=== PATIENT | female | born 1960 | race Caucasian/White ===

== ENCOUNTER 2018-12-19 09:19 | Outpatient (CLI) | payer OTHER ==
--- NOTE | 2018-12-19 11:01 | MRI ---
MRI OF RIGHT SHOULDER: DATE: 12/19/2018. Provided CLINICAL HISTORY: Right shoulder pain. FINDINGS: There is full-thickness, near full width mildly retracted tearing of the supraspinatus tendon. The c omponents of the rotator cuff appear otherwise intact. The long head biceps tendon appears intact an d normally located. The glenoid labrum and glenohumeral articular cartilage are suboptimally evaluated in the absence of joint distention. There is abnormal signal present in the region of the superior labrum suspicious f or SLAP tear. The amount of fluid within the glenohumeral joint is physiologic. There is grade I ph ysiologic subacromial subdeltoid bursal fluid. Acromioclavicular joint osteoarthrosis is demonstrated with prominent subcortical cyst formation pres ent within the distal clavicle. There is pericapsular fluid signal intensity that may reflect superi mposed low-grade AC joint injury. The coracoclavicular ligaments appear intact. Regional marrow and muscular signal appear otherwise normal. Rotator cuff muscular volume appears pr eserved. IMPRESSION: 1. Full thickness, near full width minimally retracted tearing of the supraspinatus tendon of the fo otplate. 2. Acromioclavicular joint osteoarthrosis. 3. Findings suspicious for superior labrum anterior to posterior tear. POS: [facility]
== END 2018-12-19 09:20 | disposition home or self-care (01) ==
LOC: SCSMRI 09:19
PROVIDERS: ATTEND Family Medicine
DX: S49.91XD Unspecified injury of right shoulder and upper arm, subsequent encounter (principal); M75.101 Unspecified rotator cuff tear or rupture of right shoulder, not specified as traumatic; M19.011 Primary osteoarthritis, right shoulder

== ENCOUNTER 2019-07-10 14:15 | Outpatient (CLI) | payer OTHER ==
[2019-07-10 15:43] LABS: #Eosinphils 0.3 thou/uL (0.0-0.7); #Lymphocytes 2.6 thou/uL (1.20-3.40); #Monocytes 0.8 thou/uL (0.11-0.59); #Neutrophils 4.8 thou/uL (1.40-6.50); %Basophils 0.5 % (0.0-1.0); %Eosinophils 3.5 % (0.0-10.0); %Lymphocytes 30.7 % (21.0-51.0); %Monocytes 9.2 % (0.0-10.0); %Neutrophils 56.1 % (42.0-75.0); Hemoglobin 14.2 g/dL (12.0-16.0); Mean Corpuscular HGB CONC 33.5 g/dL (32.0-36.0); Mean Corpuscular Volume 95.6 fL (78.0-98.0); Mean Platelet Volume 8.4 fL (7.4-10.4); Platelet Count 292 thou/uL (130-400); RBC Distribution Width 12.3 % (11.5-14.5); Red Blood Cell (RBC) Count 4.44 mill/uL (4.20-5.40); White Blood Cell (WBC) Count 8.5 thou/uL (4.8-10.8)
[2019-07-10 15:49] LABS: INR-International Normal Ratio 0.9; PTT 28.1 SEC (22.9-36.1); Prothrombin Time 12.3 SEC (12.0-14.7)
[2019-07-10 16:01] LABS: Anion Gap 13 mmol/L (10-20); BUN (Urea Nitrogen) 13 mg/dL (9.8-20.1); Calc. Creatinine Clearance 0 mL/min (70-130); Calcium 9.2 mg/dL (7.8-10.44); Carbon Dioxide 24 mmol/L (22-29); Chloride 106 mmol/L (98-107); Estimated GFR-MDRD 72; Glucose 131 mg/dL (70-105); Potassium 4.1 mmol/L (3.5-5.1); Sodium 139 mmol/L (136-145)
== END 2019-07-10 14:16 | disposition home or self-care (01) ==
LOC: LABBT 14:15
PROVIDERS: ATTEND Orthopaedic Surgery
DX: Z01.812 Encounter for preprocedural laboratory examination (principal); M75.101 Unspecified rotator cuff tear or rupture of right shoulder, not specified as traumatic
CPT/HCPCS: 80048; 85025; 85610; 85730

== ENCOUNTER 2019-07-12 09:47 | Day surgery (SDC) | payer OTHER ==
[2019-07-10 14:16] VITALS: BMI 31.9
[2019-07-12] MEDS ORDERED: ePHEDrine/0.9% NaCl/PF SYRINGE 50 mg/10 ml ONE (09:48)
[2019-07-12] MEDS ORDERED: Glycopyrrolate 0.2 MG/ML 5 ML SYRINGE ONE (09:48)
[2019-07-12] MEDS ORDERED: Lidocaine 1% PF 5 ML VIAL ONE (09:48)
[2019-07-12] MEDS ORDERED: PHENYLEPHRINE-NS 100 MCG/ML 10 ML SYRINGE ONE (09:48)
[2019-07-12] MEDS ORDERED: PROPOFOL 200 MG/20 ML VIAL ONE (09:48)
[2019-07-12] MEDS ORDERED: Ropivacaine 0.5% HCl/PF (150 MG/30 ML VIAL) ONE (09:48)
[2019-07-12] MEDS ORDERED: Ropivacaine 0.2% HCl/PF (40 MG/20 ML VIAL) ONE (09:48)
[2019-07-12] MEDS ORDERED: Rocuronium Bromide 10 MG/ML (10ML VIAL) ONE (09:48)
[2019-07-12] MEDS ORDERED: Midazolam HCl 2 mg/2 ml Vial ONE (10:43)
[2019-07-12] MEDS ORDERED: Fentanyl 100 MCG/2 ML VIAL ONE (10:43)
[2019-07-12 11:32] LABS: PTT 27.9 SEC (22.9-36.1); Prothrombin Time 12.7 SEC (12.0-14.7)
[2019-07-12] MEDS ORDERED: Ondansetron PF 4 MG/2 ML Vial IVP PRN (11:48)
[2019-07-12] MEDS ORDERED: Promethazine HCl 25 MG/ML VIAL IM PRN (11:48)
[2019-07-12] MEDS ORDERED: traMADol HCl 50 MG TAB PO PRN ×2 (11:48)
[2019-07-12] MEDS ORDERED: Ropivacaine 0.2% 550 ML 550 ML NERVE BLCK SCH (11:48)
[2019-07-12] MEDS ORDERED: Ketorolac Tromethamine 30 MG/ML VIAL IVP PRN (11:48)
[2019-07-12] MEDS ORDERED: HYDROcodone/Acetaminophen 10/325 mg Tablet PO PRN ×2 (11:48)
[2019-07-12] MEDS ORDERED: Zolpidem Tartrate 5 MG TAB PO PRN (11:48)
[2019-07-12] MEDS ORDERED: Fentanyl 100 MCG/2 ML VIAL SLOW IVP PRN (11:49)
[2019-07-12] MEDS ORDERED: Acetaminophen 325 MG TAB PO PRN (11:50)
[2019-07-12] MEDS ORDERED: Lidocaine 1% w/Epinephrine 1:100K 30 ML VIAL ONE (12:53)
[2019-07-12] MEDS ORDERED: Promethazine HCl 25 MG/ML VIAL ONE ×2 (14:51→16:33)
--- NOTE | 2019-07-12 21:19 | OP ---
DATE OF PROCEDURE: 07/12/2019 PREOPERATIVE DIAGNOSIS: Right shoulder rotator cuff tear and biceps tendon tear. POSTOPERATIVE DIAGNOSIS: Right shoulder rotator cuff tear and biceps tendon tear. PROCEDURES PERFORMED: 1. Right shoulder arthroscopy with arthroscopic rotator cuff repair. 2. Open biceps tenodesis. LAWYER REAL ESTATE: RADHA Peterson BLOOD LOSS: Approximately 30 mL. COMPLICATIONS: None. IMPLANTS: We used one titanium triple-loaded rotator cuff anchor. We used a 7 x 23 BioComposite Bio-Tenodesis screw. ANESTHESIA: She did have a general anesthetic as well as preoperative block. DISPOSITION: She went to recovery room in stable condition. INDICATIONS: This is a 59-year-old female, who has had problems with weakness, pain, and inability to use her right arm and shoulder as she normally does. At this time, she has failed nonoperative treatment including therapy and injections and at this time wished to have surgery. DESCRIPTION OF PROCEDURE: After all appropriate consent forms were explained and signed, she was taken to the operative room and at this time was given general anesthetic. Once the level of anesthesia was appropriate, she was rolled into the left lateral decubitus position with all bony prominences well padded. Axillary roll was placed into the left axilla and a sanford bag was inflated to hold in this position. All bony prominences were well padded. The right shoulder was then taken through full range of motion. The arm was then suspended with 10 pounds in a standard arthroscopic fashion. The right shoulder and upper extremity were then prepped and draped in a standard surgical fashion. Bony anatomical landmarks were then drawn out. The subacromial space was infiltrated with Lidocaine with epinephrine. Posterior portal was established. Scope was placed into the shoulder joint. Anterior working portal was then made using a needle localization technique. Diagnostic arthroscopy commenced in the shoulder joint. The subscapularis was found to be intact. The humeral head had normal cartilage. The glenoid overall had normal cartilage, except for an area of grade 3, which is about 3 to 4 mm wide along the superior third margin of the glenoid. No loose cartilaginous bodies were noted. Axillary pouch was clear. The labrum overall was in pretty good condition, except for the superior labrum. The tearing in the superior labrum went up into the biceps root. At this time, an 18-gauge needle was used to puncture the biceps tendon and placed a stitch through this. The arthroscopic scissors were then used to cut the biceps tendon off the superior labrum. Once this was done, this was debrided. At this time, we then turned our attention into the subacromial space. Lateral working portal was made. Rotator cuff tear was noted. The edges were debrided. Soft tissue was removed off the bony insertion on the tuberosity. No significant bony decompression was performed, and at this time, we placed our Passport cannula laterally. We then through this placed a triple-loaded titanium anchor into the tuberosity. We then used a Scorpion device to pull the sutures through the tear with the first front two sets being simple and the posterior one being a mattress stitch. These were then sequentially tied for our repair. We then removed the scope and drained the shoulder. We then used a 15 blade to incise down through skin. Bovie was used to clear any brisk venous bleeding. Deltoid fascia was opened sharply. Finger dissection was used to split the fibers in line to get down to the underlying transverse humeral ligament. This was then opened up and the biceps tendon was pulled onto the wound. The biceps tendon was then sutured. The intra-articular portion was removed. We then placed a pin, reamed over top of this with a 7 mm reamer to a depth of 25 and placed a 7 x 23 BioComposite Bio- Tenodesis screw in a standard fashion. At this time, the sutures were tied over top of this so that the screw would not back out. We then thoroughly irrigated and dried. We then closed the deltoid by running a Vicryl to close the fascia. We then used 2 -0 Vicryl and stitches to close our skin incisions. A bulky sterile dressing was applied. Patient was then awakened. She was taken to recovery room in stable condition. All counts were correct at the end of the case. She did receive preoperative IV antibiotics. Job ID: [id number] [facility]
== END 2019-07-12 17:45 | disposition home or self-care (01) ==
LOC: SDC 09:47
PROVIDERS: ATTEND Orthopaedic Surgery
PROC: 3E0T3BZ Introduction of Anesthetic Agent into Peripheral Nerves and Plexi, Percutaneous Approach (ICD-10-PCS; principal; 2019-07-12)
PROC: 0RHJ04Z Insertion of Internal Fixation Device into Right Shoulder Joint, Open Approach (ICD-10-PCS; principal; 2019-07-12)
PROC: 0LQ14ZZ Repair Right Shoulder Tendon, Percutaneous Endoscopic Approach (ICD-10-PCS; principal; 2019-07-12)
PROC: 0LS10ZZ Reposition Right Shoulder Tendon, Open Approach (ICD-10-PCS; principal; 2019-07-12)
DX: M75.121 Complete rotator cuff tear or rupture of right shoulder, not specified as traumatic (principal); S46.111A Strain of muscle, fascia and tendon of long head of biceps, right arm, initial encounter; S43.491A Other sprain of right shoulder joint, initial encounter; G89.18 Other acute postprocedural pain; I10 Essential (primary) hypertension; I25.10 Atherosclerotic heart disease of native coronary artery without angina pectoris; E78.5 Hyperlipidemia, unspecified; B00.9 Herpesviral infection, unspecified; J45.909 Unspecified asthma, uncomplicated; F17.200 Nicotine dependence, unspecified, uncomplicated; E66.9 Obesity, unspecified; Z68.31 Body mass index [BMI] 31.0-31.9, adult; Z79.02 Long term (current) use of antithrombotics/antiplatelets; Z79.82 Long term (current) use of aspirin; Z79.899 Other long term (current) drug therapy
CPT/HCPCS: 36415; 85610; 85730; A4306; C1713; J0690; J2001; J2250; J2550; J2704; J2795; J3010

== ENCOUNTER 2020-04-18 12:12 | Inpatient (IN) | payer BC, OTHER ==
[~2020-04-18 12:12] MED LIST: Iopamidol-370 76% 500 ML 1 ML ONE
--- NOTE | 2020-04-18 12:25 | CT ---
EXAM: CT brain without contrast HISTORY: Stroke with weakness COMPARISON: None TECHNIQUE: Multiple contiguous axial images were obtained and a CT of the brain without contrast. FINDINGS: There are scattered hypodensities in the subcortical and periventricular white matter consi stent with small vessel ischemic disease. There is no evidence of hydrocephalus, intracranial hemorrhage, or extra-axial fluid collection. The calvarium and overlying soft tissues are unremarkable. The visualized paranasal sinuses and masto id air cells are well aerated. IMPRESSION: No evidence of acute intracranial abnormality Dr. Martínez notified of findings at 12:22 PM on 04/18/2020.
[2020-04-18 12:37] LABS: #Basophils 0.1 thou/uL (0.0-0.2); #Eosinphils 0.5 thou/uL (0.0-0.7); #Lymphocytes 2.3 thou/uL (1.20-3.40); #Monocytes 0.9 thou/uL (0.11-0.59); #Neutrophils 5.5 thou/uL (1.40-6.50); %Basophils 1.1 % (0.0-1.0); %Eosinophils 5.8 % (0.0-10.0); %Lymphocytes 24.2 % (21.0-51.0); %Neutrophils 58.9 % (42.0-75.0); Hemoglobin 14.2 g/dL (12.0-16.0); Mean Corpuscular Volume 94.3 fL (78.0-98.0); Mean Platelet Volume 8.3 fL (7.4-10.4); Platelet Count 271 thou/uL (130-400); RBC Distribution Width 12.5 % (11.5-14.5); Red Blood Cell (RBC) Count 4.42 mill/uL (4.20-5.40); White Blood Cell (WBC) Count 9.4 thou/uL (4.8-10.8)
[2020-04-18 12:41] LABS: INR-International Normal Ratio 0.9; PTT 28.6 sec (22.9-36.1); Prothrombin Time 12.3 sec (12.0-14.7)
[2020-04-18] MEDS ORDERED: Aspirin Chewable 81 MG TAB ONE (12:43)
[2020-04-18 12:57] LABS: ALT (SGPT) 30 U/L (8-55); AST (SGOT) 23 U/L (5-34); Albumin 3.9 g/dL (3.5-5.0); Alkaline Phosphatase 81 U/L (40-110); Anion Gap 13 mmol/L (10-20); BUN (Urea Nitrogen) 10 mg/dL (9.8-20.1); Bilirubin, Total 0.4 mg/dL (0.2-1.2); Calc. Creatinine Clearance 0 mL/min (70-130); Calcium 8.6 mg/dL (7.8-10.44); Carbon Dioxide 22 mmol/L (22-29); Chloride 109 mmol/L (98-107); Estimated GFR-MDRD 76; Globulin 2.5 g/dL (2.4-3.5); Glucose 98 mg/dL (70-105); Potassium 4.6 mmol/L (3.5-5.1); Protein, Total 6.4 g/dL (6.0-8.3); Sodium 139 mmol/L (136-145)
[2020-04-18] MEDS ORDERED: niCARdipine 20MG In NaCl 20 MG/200 ML BAG ONE (13:13)
[2020-04-18 13:20] LABS: Bilirubin Negative (Negative); Blood, Urine Negative (Negative); Clarity Clear (Clear); Glucose, Urine (Dipstick) Normal (Negative); Ketone, Urine Negative (Negative); Leukocyte Negative Leu/uL (Negative); Nitrite Negative (Negative); Protein, Urine (Dipstick) Negative (Neg-Trace); Specific Gravity, Urine 1.021 (1.002-1.036); Urobilinogen Normal mg/dL (Less than 2); pH, Urine 5.5 (5.0-9.0)
--- NOTE | 2020-04-18 15:51 | RAD ---
CHEST ONE VIEW: 04/18/20 INDICATION: Right sided neurologic defect and fever. COMPARISON: Prior exam dated 11/11/09. FINDINGS: The lungs are clear. Heart size is normal. No pleural effusion or pneumothorax is evident. No acute o sseous abnormality is evident. IMPRESSION: No acute cardiopulmonary abnormality. POS: [facility]
--- NOTE | 2020-04-18 16:57 | CT ---
CT ANGIOGRAM NECK WITH CONTRAST: DATE: 04/18/2020 HISTORY: 60-year-old female with TIA: Right-sided neurological deficits: Upper and lower extremity, and facial paralysis TECHNIQUE: After IV contrast injection, arterial bolus chasing technique scan performed from AP window and iam a to vertex of skull Coronal and sagittal 3-D MIP reconstructions. FINDINGS: There are large air-fluid levels in the bilateral maxillary sinuses. Severe mucosal thickening throug hout bilateral ethmoid air cells. Diffuse micronodular pattern of bilateral parotid glands suggestive of Sjogren's disease. Some of the arteries at the thoracic inlet are obscured by streak artifact from dense IV contrast cherise us material in adjacent veins. Brachiocephalic: Origin obscured. No high-grade stenosis in rest of vessel. Right subclavian: No high-grade stenosis. Left subclavian: Proximal portion obscured. Atheromatous plaque causing severe stenosis at origin. Mi d and distal portions within normal limits in caliber. Right vertebral: No high-grade stenosis or dissection. Left vertebral: No high-grade stenosis or dissection. Right common carotid: No high-grade stenosis or dissection. Left common carotid: Origin obscured. Otherwise no high-grade stenosis or dissection. Right internal carotid: Multifocal calcified atheromatous plaque at carotid bulb, including origin of right internal carotid, where there is mild stenosis. No high-grade stenosis or dissection in rest of vessel. Left internal carotid: Mild calcified plaque at origin. No significant stenosis. No dissection. Carotid siphons: Mild plaque. No high-grade stenosis. Bilateral MCAs: No high-grade stenosis, thrombosis, or occlusion of M1 segments. Basilar: No high-grade stenosis or occlusion. Bilateral signaler: P1 and P2 segments patent Bilateral superior cerebellars: Proximal portions patent IMPRESSION: 1) mild atherosclerosis of bilateral proximal internal carotid arteries, right greater than left. 2) no high-grade stenosis, dissection, or occlusion identified in any major artery. 3) findings suggestive of Sjogren's disease. Recommend clinical correlation. 4) maxillary and ethmoid mucosal paranasal sinus disease.
[2020-04-18] MEDS ORDERED: Amiodarone 450 MG in Dextrose 5% in Water 250 ML IVPB SCH (17:15)
[2020-04-18] MEDS ORDERED: Amiodarone 150 MG in Dextrose 5% in Water 100 ML IVPB SCH (17:15)
[2020-04-18] MEDS ORDERED: Atorvastatin Calcium 40 MG TAB PO SCH (21:00)
--- NOTE | 2020-04-18 21:02 | HP ---
CHIEF COMPLAINT: Right-sided weakness. HISTORY OF PRESENT ILLNESS: The patient is a 60-year-old female with history of hypertension and possible COPD, who presents to the hospital with complaints of right-sided weakness x1 day. The patient stated that she was about to hit out with her daughter, which she started noticing right arm and right leg weakness and some slurring. At this time, 911 was called, and she was brought into the hospital for further evaluation. Upon talking with the ER physician, her symptoms resolved before she came into the ER. The only thing that persisted was right-sided arm weakness, which was improving. At this time, per the ER physician, she was not a candidate for tPA due to resolving of her symptoms. The patient denies any palpitations or any history of any atrial fibrillation. She states that this was never happened to her before. PAST MEDICAL HISTORY: She has a history of hypertension, COPD, and depression. ALLERGIES: SHE HAS NO KNOWN DRUG ALLERGIES. MEDICATIONS: Are as of the following, she is on: 1. Hydralazine 25 mg as needed. 2. Ipratropium/albuterol as needed. 3. Isosorbide mononitrate 50 mg daily. 4. Losartan 100 mg daily. 5. Multivitamin one p.o. daily. 6. Pantoprazole 40 mg daily. 7. Trazodone 50 mg daily. 8. Aspirin 81 mg daily. 9. Atorvastatin 40 mg daily. 10. Bupropion 300 mg daily. 11. Chantix that was recently started. 12. Clopidogrel 75 mg daily. 13. Diltiazem 360 mg daily. PAST MEDICAL HISTORY: She has a history of COPD, high blood pressure. She states that she has had a cardiac cath about 3 years ago; however, she has never had any stents. 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 PAST SURGICAL HISTORY: She has had a rotator cuff surgery and hysterectomy. SOCIAL HISTORY: She smokes a pack a day. Denies any alcohol use or drug use. She is a full code. She lives with her family, and she works at [employer]. FAMILY HISTORY: History of heart disease and cancer in Mother and Father. LABORATORY DATA: Her labs are as of the following; WBCs of 9.4, hemoglobin of 14.2, hematocrit of 41.7, and platelets of 271. Chemistries: Sodium of 139, potassium of 4.6, BUN of 10, creatinine of 0.78. Troponin of 0.015. EKG does not show any ST elevation or depression. No arrhythmia was noted. Urine was completely normal. She had a CT head, which did not show any acute intracranial abnormalities. She also underwent a CTA, which indicated mild atherosclerosis of the bilateral proximal internal carotid arteries, right greater than left. No high-grade stenosis, occlusion, or dissection noted. She had a maxillary and ethmoid mucosal, paranasal sinus disease. It indicated that she also has large air-fluid levels in bilateral maxillary sinus with severe mucosal thickening throughout the bilateral ethmoid air cells. Also had diffuse micronodular pattern of bilateral parotid glands. PHYSICAL EXAMINATION: VITAL SIGNS: As of the following; temperature of 98.5, blood pressure 185/93, pulse of 96, respirations of 18, and 98% on room air. GENERAL: She is awake, alert, and oriented x3. Does not appear in distress. CV: S1, S2 present. Regular rhythm and rate. LUNGS: Clear to auscultation. No rhonchi or wheezes noted. ABDOMEN: Soft, nontender. Bowel sounds are present x2. EXTREMITIES: Her lower extremity has 5/5 strength. Sensation intact bilaterally. 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 She is unable to extend her right hand above her head. Sensation is intact to bilateral upper extremities. Edirkb-cw-alpf is slow on the right compared to the left. Plby-al-bcvn is intact bilaterally to the lower extremities. ASSESSMENT AND PLAN: The patient is a very pleasant 60-year-old female who presents to the hospital with complaints of right-sided weakness. 1. Right-sided weakness, most likely secondary to stroke. The patient continues to have persistent, however, improving right arm weakness. The patient states that she was unable to move her right leg also; however, currently, she is able to ambulate to the bathroom. She does have some mild weakness of the right upper extremity. She has no facial droop. No slurred speech. She is already on aspirin and Plavix. We will continue that. We will go ahead and start her on a stroke workup which will include MRI brain. She already had a CTA, and we will also get an ultrasound of the heart. 2. Smoking session. The patient smokes a pack a day. She states that she does not currently want a patch. She was taking Chantix for the past couple of days; however, she states that she is most likely going to quit smoking after this episode. 3. Hypertension. We will allow some permissive hypertension for now. We will hold her blood pressure medications. 4. Deep venous thrombosis prophylaxis. We will put the patient on subcu Lovenox. Job ID: [id number]
[2020-04-18] MEDS: Amoxicillin/Potassium Clav 875 MG TAB PO SCH (21:51)
[2020-04-18] MEDS: traZODone HCl 50 MG TAB PO SCH (21:52)
[2020-04-18 22:27] VITALS: BMI 32.2
[2020-04-19] MEDS: Acetaminophen 500 MG TAB PO PRN ×2 (00:42→09:24)
[2020-04-19 05:40] LABS: Cardiac Risk 3.4 (Less than 4.5)
[2020-04-19] MEDS ORDERED: Promethazine DM 6.25-15mg/5ml 120 ML BOT PO PRN (08:27)
[2020-04-19] MEDS ORDERED: hydrALAZINE 25 MG TAB PO PRN (08:27)
[2020-04-19] MEDS ORDERED: Furosemide 20 MG TAB PO PRN (08:27)
--- NOTE | 2020-04-19 08:28 | PDOC.HOSPP ---
- Subjective Encounter Date: 04/19/20 Encounter Time: 06:45 Subjective: Patient seen and examined. No new complaints. No overnight events, patient subjectively feels improvement in her right upper extremity weakness - Objective Vital Signs & Weight: Vital Signs (12 hours) Temp Pulse Resp BP Pulse Ox 04/19/20 07:25 97.8 F 86 20 186/86 H 99 04/19/20 00:00 98.1 F 74 20 142/81 H 98 04/18/20 21:50 98 Weight Weight 188 lb Result Diagrams: 04/18/20 12:25 04/18/20 12:24 Radiology Reviewed by me: Yes EKG Reviewed by me: Yes Hospitalist ROS - Review of Systems ENT: denies: ear pain, ear discharge, nose pain, nose discharge, nose congestion, mouth pain, mouth swelling, throat pain, throat swelling, other Respiratory: denies: cough, dry, shortness of breath, hemoptysis, SOB with excertion, pleuritic pain, sputum, wheezing, other Cardiovascular: denies: chest pain, palpitations, orthopnea, paroxysmal noc. dyspnea, edema, light headedness, other Gastrointestinal: denies: nausea, vomiting, abdominal pain, diarrhea, constipation, melena, hematochezia, other Genitourinary: denies: dysuria, frequency, incontinence, hematuria, retention, other Musculoskeletal: denies: neck pain, shoulder pain, arm pain, back pain, hand pain, leg pain, foot pain, other Skin: denies: rash, lesions, bailey, bruising, other Neurological: reports: weakness. denies: numbness, incoordination, change in speech, confusion, seizures, other - Medication Medications: Active Medications Generic Name Dose Route Start Last Admin Trade Name Freq PRN Reason Stop Dose Admin Acetaminophen 500 mg 04/18/20 22:52 04/19/20 00:42 Acetaminophen 500 Mg Tab PO 500 mg Q6H PRN Administration Pain Amoxicillin/Clavulanate Potassium 875 mg 04/18/20 21:00 04/18/20 21:51 Amoxicillin/Potassium Clav 875 Mg Tab PO 875 mg Q12HR JAYANT Administration Sodium Chloride 10 ml 04/18/20 17:08 04/18/20 21:52 Flush - Normal Saline 10 Ml Syringe IVF 10 ml PRN PRN Administration Saline Flush Trazodone HCl 50 mg 04/18/20 21:00 04/18/20 21:52 Trazodone Hcl 50 Mg Tab PO 50 mg HS JAYANT Administration - Exam General Appearance: NAD, awake alert Eye: PERRL, anicteric sclera ENT: normocephalic atraumatic, no oropharyngeal lesions Neck: supple, symmetric, no JVD, no thyromegaly Heart: RRR, no murmur, no gallops, no rubs Respiratory: CTAB, no wheezes, no rales, no ronchi, normal chest expansion Gastrointestinal: soft, non-tender, non-distended, normal bowel sounds Extremities: no cyanosis, no clubbing, no edema Skin: normal turgor, no lesions Neurological: cranial nerve grossly intact, normal sensation to touch Neurological - other findings: Very mild right upper extremity weakness noted, Musculoskeletal: normal tone, normal strength, no muscle wasting Psychiatric: normal affect, normal behavior, A&O x 3 Hosp A/P - Plan old records reviewed/req, 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
[2020-04-19] MEDS ORDERED: Nitroglycerin 0.4 MG TAB (25 Tab Bottle) SL PRN (08:30)
[2020-04-19] MEDS ORDERED: Albuterol 200 PUFF (6.7GM INHALER) INH PRN (08:36)
[2020-04-19] MEDS ORDERED: Ergocalciferol 1.25 MG(50,000 UNITS) CAP PO SCH (09:00)
[2020-04-19] MEDS: Potassium Chloride 10 MEQ TAB PO SCH (09:23)
[2020-04-19] MEDS: Aspirin 325 mg Enteric Coated Tablet PO SCH (09:23)
[2020-04-19] MEDS: Amoxicillin/Potassium Clav 875 MG TAB PO SCH ×2 (09:23→20:53)
[2020-04-19] MEDS: Clopidogrel Bisulfate 75 MG TAB PO SCH (09:24)
[2020-04-19] MEDS: Bupropion 150 MG XL TAB PO SCH (09:24)
[2020-04-19] MEDS: Atorvastatin Calcium 40 MG TAB PO SCH (09:24)
[2020-04-19] MEDS: Enoxaparin Sodium 40 MG/0.4 ML SYRINGE SC SCH (09:24)
[2020-04-19] MEDS: Losartan 25 MG TAB PO SCH (09:24)
[2020-04-19] MEDS: Famciclovir 500 MG TAB PO SCH (09:27)
--- NOTE | 2020-04-19 11:13 | MRI ---
MRI Brain WO Con: 04/19/2020 10:59 AM CLINICAL HISTORY: History of stroke and inability to move right arm since yesterday. TECHNIQUE: Multiplanar, multisequence images were obtained of the brain. COMPARISON: CTA of the head and neck dated April 18, [address] the brain dated 2019 FINDINGS: Extra axial spaces: Normal in size and morphology for the patient's age. Hemorrhage: None. Ventricular system: Normal in size and morphology for the patient's age. Basal cisterns: Normal. Cerebral parenchyma: There are multiple foci of restricted diffusion involving the cortical and subco rtical white matter of the left frontal lobe, left parietal lobe and lateral left temporal lobe in a left MCA distribution consistent with multiple small embolic infarctions. There are remote lacunar infarcts involving the right basal ganglia. There is mild chronic small vessel white matter ischemic change.. Midline shift: None. Cerebellum: Normal. Brainstem: Normal. OTHER: Calvarium: Normal. Vascular system: Normal. Visualized Paranasal sinuses: There air-fluid levels with mucosal thickening involving the maxillary sinuses and ethmoid air cells. There is mild mucosal thickening of the sphenoid sinus and frontal sinuses.. Visualized Orbits: Normal. Visualized upper cervical spine: Normal. Sella and skull base: There is partial effusions involving the mastoid air cells.. IMPRESSION: 1. Multiple small foci of acute embolic infarction involving the left MCA distribution of the left fr ontal, left parietal and left temporal lobes. 2. Remote lacunar infarcts of the right basal ganglia and mild chronic small vessel white matter isch emic change. 3. Acute bilateral maxillary and ethmoid sinusitis. 4. Partial fusions of the mastoid air cells.
[2020-04-19 12:22] LABS: SARS-CoV-2 MS2 Positive; SARS-CoV-2 N Gene Negative; SARS-CoV-2 S Gene Negative; SARS-CoV-2 by NAA Not Detected (NotDetected); SARS-CoV-2 orf1ab Negative
--- NOTE | 2020-04-19 13:45 | CON ---
DATE OF CONSULTATION: 04/19/2020 CONSULTING PHYSICIAN: Hospitalist Services. IMPRESSION: 1. Possible cardioembolic stroke with patchy areas of infarction involving the left middle cerebral artery territory. 2. Aspirin and Plavix failure. PLAN: If the echocardiogram suggests a cardioembolic source, she would need to be switched over to anticoagulation. Otherwise, I would switch her to Aggrenox one twice a day in place of the aspirin and Plavix. HISTORY OF PRESENT ILLNESS: Ms. Vincent is a 60-year-old woman who came in with complaints of acute onset of right-sided weakness, primarily affected the arm and a bit of her speech. The speech has since cleared up. She has never had anything like this before. She reports a history of coronary artery disease and was followed by Cardiology. She reportedly has a normal ejection fraction. She had initial CT angiogram and CT of the brain, which did not show any acute abnormalities. There was just some minimal atherosclerotic disease in the internal carotid arteries. Her MRI confirmed an acute stroke. Her symptoms have improved somewhat. PAST MEDICAL HISTORY: Hypertension and coronary artery disease. ALLERGIES: NONE REPORTED. SOCIAL HISTORY: Unremarkable. FAMILY HISTORY: Unremarkable. REVIEW OF SYSTEMS: 10-system review of systems is otherwise unremarkable. PHYSICAL EXAMINATION: VITAL SIGNS: Blood pressure 186/86, pulse 86, respirations 20, and temperature 97.8. HEENT: Pupils equal and reactive. Conjunctivae clear. Oropharynx clear. NECK: Supple. CHEST: Clear. ABDOMEN: Soft. EXTREMITIES: No cyanosis or edema. NEUROLOGIC: She is alert and cooperative. Her speech is fluent and clear. There were no cranial nerve deficits. She had antigravity strength in the right arm and diminished rapid alternating movements in the right hand. Sensation was subjectively decreased in the right arm. Sensation was otherwise intact in the extremities. She could walk independently. LABORATORY STUDIES: Reviewed. SUMMARY: This is a middle-aged woman with an acute stroke with this suggestive feature of a thromboembolic or cardioembolic event. Her main carotids are clear. Her echocardiogram results are pending. She seems to be improving. I would be happy to follow up with her as an outpatient. Job ID: [id number]
[2020-04-19] MEDS: traZODone HCl 50 MG TAB PO SCH (20:53)
[2020-04-20] MEDS: Clopidogrel Bisulfate 75 MG TAB PO SCH (08:57)
[2020-04-20] MEDS: Atorvastatin Calcium 40 MG TAB PO SCH (08:57)
[2020-04-20] MEDS: Amoxicillin/Potassium Clav 875 MG TAB PO SCH ×2 (08:57→21:50)
[2020-04-20] MEDS: Bupropion 150 MG XL TAB PO SCH (08:57)
[2020-04-20] MEDS: Aspirin 325 mg Enteric Coated Tablet PO SCH (08:57)
[2020-04-20] MEDS: Losartan 25 MG TAB PO SCH (08:58)
[2020-04-20] MEDS: Potassium Chloride 10 MEQ TAB PO SCH (08:58)
[2020-04-20] MEDS: Enoxaparin Sodium 40 MG/0.4 ML SYRINGE SC SCH (08:59)
[2020-04-20] MEDS: Famciclovir 500 MG TAB PO SCH (08:59)
[2020-04-20] MEDS: Acetaminophen 500 MG TAB PO PRN (12:21)
--- NOTE | 2020-04-20 12:34 | PDOC.NEUPN ---
- Subjective Encounter Date: 04/20/20 Subjective: Patient denies any new complaints. - Objective Vital Signs & Weight: Vital Signs (12 hours) Temp Pulse Pulse Pulse Resp BP BP 04/20/20 11:37 98.0 F 86 17 04/20/20 09:15 84 88 189/87 H 197/91 H 04/20/20 08:59 04/20/20 07:42 97.7 F 91 17 04/20/20 04:00 96.1 F L 88 16 BP Pulse Ox 04/20/20 11:37 143/78 H 98 04/20/20 09:15 04/20/20 08:59 98 04/20/20 07:42 176/78 H 98 04/20/20 04:00 171/80 H 98 Weight Weight 188 lb Result Diagrams: 04/18/20 12:25 04/18/20 12:24 Radiology Reviewed by me: Yes EKG Reviewed by me: Yes ROS - Review of Systems Constitutional: denies: fever, chills, sweats, weakness, malaise, other Eyes: denies: pain, vision change, conjunctivae inflammation, eyelid inflammation, redness, other ENT: denies: ear pain, ear discharge, nose pain, nose discharge, nose conge stion, mouth pain, mouth swelling, throat pain, throat swelling, other Respiratory: denies: cough, dry, shortness of breath, hemoptysis, SOB with excertion, pleuritic pain, sputum, wheezing, other Cardiovascular: denies: no pertinent history, AFIB, CAD, CHF, HTN, WI, Syncope, Hyperlipidemia, Mitral valve stenosis, Aortic stenosis, Valve insufficiency, Pulmonary hypertension, Other Gastrointestinal: denies: nausea, vomiting, abdominal pain, diarrhea, constipation, melena, hematochezia, other Genitourinary: denies: dysuria, frequency, incontinence, hematuria, retention, other Musculoskeletal: denies: neck pain, shoulder pain, arm pain, back pain, hand pain, leg pain, foot pain, other Skin: denies: rash, lesions, bailey, bruising, other Neurological: reports: weakness. denies: numbness, incoordination, change in speech, confusion, seizures, other - Medication Medications: Active Medications Generic Name Dose Route Start Last Admin Trade Name Freq PRN Reason Stop Dose Admin Acetaminophen 500 mg 04/18/20 22:52 04/20/20 12:21 Acetaminophen 500 Mg Tab PO 500 mg Q6H PRN Administration Pain Amoxicillin/Clavulanate Potassium 875 mg 04/18/20 21:00 04/20/20 08:57 Amoxicillin/Potassium Clav 875 Mg Tab PO 875 mg Q12HR JAYANT Administration Aspirin 325 mg 04/19/20 09:00 04/20/20 08:57 Aspirin 325 Mg Enteric Coated Tablet PO 325 mg DAILY JAYANT Administration Atorvastatin Calcium 40 mg 04/19/20 09:00 04/20/20 08:57 Atorvastatin Calcium 40 Mg Tab PO 40 mg DAILY JAYANT Administration Bupropion HCl 300 mg 04/19/20 09:00 04/20/20 08:57 Bupropion 150 Mg Xl Tab PO 300 mg DAILY JAYANT Administration Clopidogrel Bisulfate 75 mg 04/19/20 09:00 04/20/20 08:57 Clopidogrel Bisulfate 75 Mg Tab PO 75 mg DAILY JAYANT Administration Diltiazem HCl 360 mg 04/19/20 09:00 04/20/20 08:57 Diltiazem Hcl Cd 180 Mg Capsule PO 360 mg DAILY JAYANT Administration Enoxaparin Sodium 40 mg 04/19/20 09:00 04/20/20 08:59 Enoxaparin Sodium 40 Mg/0.4 Ml Syringe SC 40 mg 0900 JAYANT Administration Ergocalciferol 1.25 mg 04/19/20 09:00 04/19/20 09:23 Ergocalciferol 1.25 Mg(50,000 Units) Cap PO 1.25 mg Q7DAYS JAYANT Administration Famciclovir 500 mg 04/19/20 09:00 04/20/20 08:59 Famciclovir 500 Mg Tab PO 500 mg DAILY JAYANT Administration Isosorbide Mononitrate 30 mg 04/19/20 09:00 04/20/20 08:58 Isosorbide Mononitrate Er 30 Mg Tab PO 30 mg DAILY JAYANT Administration Losartan Potassium 100 mg 04/19/20 09:00 04/20/20 08:58 Losartan 25 Mg Tab PO 100 mg DAILY JAYANT Administration Pantoprazole Sodium 40 mg 04/19/20 09:00 04/20/20 08:58 Pantoprazole 40 Mg Tab PO 40 mg DAILY JAYANT Administration Potassium Chloride 10 meq 04/19/20 09:00 04/20/20 08:58 Potassium Chloride 10 Meq Tab PO 10 meq DAILY JAYANT Administration Sodium Chloride 10 ml 04/18/20 17:08 04/20/20 09:00 Flush - Normal Saline 10 Ml Syringe IVF 10 ml PRN PRN Administration Saline Flush Trazodone HCl 50 mg 04/18/20 21:00 04/19/20 20:53 Trazodone Hcl 50 Mg Tab PO 50 mg HS JAYANT Administration - Exam General Appearance: awake alert Eye: PERRL ENT: normocephalic atraumatic Neck: supple Respiratory: CTAB Cardiovascular: RRR Gastrointestinal: soft Extremities: no cyanosis Skin: normal turgor Neurological: CN's grossly intact, no new deficit Neurological - other findings: right hemiparesis Musculoskeletal: normal tone, no muscle wasting PSYCH: normal affect, normal behavior, A&O x 3 Results - Labs Result Diagrams: 04/18/20 12:25 04/18/20 12:24 Lab results: WBC 9.4 thou/uL (4.8-10.8) 04/18/20 12:25 Hgb 14.2 g/dL (12.0-16.0) 04/18/20 12:25 Hct 41.7 % (36.0-47.0) 04/18/20 12:25 MCV 94.3 fL (78.0-98.0) 04/18/20 12:25 Plt Count 271 thou/uL (130-400) 04/18/20 12:25 Neutrophils % 58.9 % (42.0-75.0) 04/18/20 12:25 Sodium 139 mmol/L (136-145) 04/18/20 12:24 Potassium 4.6 mmol/L (3.5-5.1) 04/18/20 12:24 Chloride 109 mmol/L (98-107) H 04/18/20 12:24 Carbon Dioxide 22 mmol/L (22-29) 04/18/20 12:24 BUN 10 mg/dL (9.8-20.1) 04/18/20 12:24 Creatinine 0.78 mg/dL (0.6-1.1) 04/18/20 12:24 Glucose 98 mg/dL (70-105) 04/18/20 12:24 Calcium 8.6 mg/dL (7.8-10.44) 04/18/20 12:24 Total Bilirubin 0.4 mg/dL (0.2-1.2) 04/18/20 12:24 AST 23 U/L (5-34) 04/18/20 12:24 ALT 30 U/L (8-55) 04/18/20 12:24 Alkaline Phosphatase 81 U/L (40-110) 04/18/20 12:24 Troponin I 0.015 ng/mL (< 0.028) 04/18/20 12:24 Serum Total Protein 6.4 g/dL (6.0-8.3) 04/18/20 12:24 Albumin 3.9 g/dL (3.5-5.0) 04/18/20 12:24 Urine Ketones Negative mg/dL (Negative) 04/18/20 13:04 Urine Blood Negative (Negative) 04/18/20 13:04 Urine Nitrite Negative (Negative) 04/18/20 13:04 Ur Leukocyte Esterase Negative Scott/uL (Negative) 04/18/20 13:04 - Radiology Interpretation MRI - head Status: image reviewed by me, report reviewed by me Additional Comment: Multiple small foci of embolic acute infarction in the left MCA territory. PN A/P (1) Acute CVA (cerebrovascular accident) Code(s): I63.9 - CEREBRAL INFARCTION, UNSPECIFIED Status: Acute (2) Hypertension Code(s): I10 - ESSENTIAL (PRIMARY) HYPERTENSION Status: Acute - Plan Daily Plan: PT/OT, speech therapy, DVT proph w/SCDs 60-year-old female presented with right upper extremity weakness. MRI of the brain consistent with acute infarction. MRI of the brain reviewed and was consistent with acute multiple foci of infarction in the left MCA territory. CTA of the head and neck reviewed and was negative for hemodynamically significant stenosis. 2D echo completed. Results reviewed which showed ejection fraction of 60 to 65%. No evidence of thrombus or PFO. Neuro checks every 4 hours. Telemetry to rule out arrhythmias. Patient had stroke on combination of aspirin and Plavix. Consider switching to Aggrenox 1 tablet twice daily. Continue high intensity statin for secondary stroke prevention. Continue home medications. Permissive control of blood pressure and strict control of blood glucose. PT/OT/speech. Continue medical management per primary team. Plan discussed in detail with the patient, and during stroke rounds.
--- NOTE | 2020-04-20 14:00 | PDOC.HOSPP ---
- Subjective Encounter Date: 04/20/20 Encounter Time: 09:00 Subjective: Patient seen and examined for acute CVA. Right-sided weakness improving. No chest pain, shortness of breath or new focal deficit reported. - Objective Vital Signs & Weight: Vital Signs (12 hours) Temp Pulse Pulse Pulse Resp BP BP 04/20/20 11:37 98.0 F 86 17 04/20/20 09:15 84 88 189/87 H 197/91 H 04/20/20 08:59 04/20/20 07:42 97.7 F 91 17 04/20/20 04:00 96.1 F L 88 16 BP Pulse Ox 04/20/20 11:37 143/78 H 98 04/20/20 09:15 04/20/20 08:59 98 04/20/20 07:42 176/78 H 98 04/20/20 04:00 171/80 H 98 Weight Weight 188 lb Result Diagrams: 04/18/20 12:25 04/18/20 12:24 Radiology Reviewed by me: Yes (MRI brainacute left MCA CVA) EKG Reviewed by me: Yes (Sinus rhythm on telemetry) Hospitalist ROS - Review of Systems Respiratory: denies: cough, dry, shortness of breath, hemoptysis, SOB with excertion, pleuritic pain, sputum, wheezing, other Cardiovascular: denies: chest pain, palpitations, orthopnea, paroxysmal noc. dyspnea, edema, light headedness, other All other systems reviewed; all pertinent +/- noted in HPI/Subj - Medication Medications: Active Medications Generic Name Dose Route Start Last Admin Trade Name Freq PRN Reason Stop Dose Admin Acetaminophen 500 mg 04/18/20 22:52 04/20/20 12:21 Acetaminophen 500 Mg Tab PO 500 mg Q6H PRN Administration Pain Amoxicillin/Clavulanate Potassium 875 mg 04/18/20 21:00 04/20/20 08:57 Amoxicillin/Potassium Clav 875 Mg Tab PO 875 mg Q12HR JAYANT Administration Bupropion HCl 300 mg 04/19/20 09:00 04/20/20 08:57 Bupropion 150 Mg Xl Tab PO 300 mg DAILY JAYANT Administration Diltiazem HCl 360 mg 04/19/20 09:00 04/20/20 08:57 Diltiazem Hcl Cd 180 Mg Capsule PO 360 mg DAILY JAYANT Administration Enoxaparin Sodium 40 mg 04/19/20 09:00 04/20/20 08:59 Enoxaparin Sodium 40 Mg/0.4 Ml Syringe SC 40 mg 0900 JAYANT Administration Ergocalciferol 1.25 mg 04/19/20 09:00 04/19/20 09:23 Ergocalciferol 1.25 Mg(50,000 Units) Cap PO 1.25 mg Q7DAYS JAYANT Administration Famciclovir 500 mg 04/19/20 09:00 04/20/20 08:59 Famciclovir 500 Mg Tab PO 500 mg DAILY JAYANT Administration Isosorbide Mononitrate 30 mg 04/19/20 09:00 04/20/20 08:58 Isosorbide Mononitrate Er 30 Mg Tab PO 30 mg DAILY JAYANT Administration Losartan Potassium 100 mg 04/19/20 09:00 04/20/20 08:58 Losartan 25 Mg Tab PO 100 mg DAILY JAYANT Administration Pantoprazole Sodium 40 mg 04/19/20 09:00 04/20/20 08:58 Pantoprazole 40 Mg Tab PO 40 mg DAILY JAYANT Administration Potassium Chloride 10 meq 04/19/20 09:00 04/20/20 08:58 Potassium Chloride 10 Meq Tab PO 10 meq DAILY JAYANT Administration Sodium Chloride 10 ml 04/18/20 17:08 04/20/20 09:00 Flush - Normal Saline 10 Ml Syringe IVF 10 ml PRN PRN Administration Saline Flush Trazodone HCl 50 mg 04/18/20 21:00 04/19/20 20:53 Trazodone Hcl 50 Mg Tab PO 50 mg HS JAYANT Administration - Exam General Appearance: NAD Neck: supple, no JVD Heart: RRR, no gallops, no rubs, normal peripheral pulses Respiratory: no wheezes, no rales, no ronchi, normal chest expansion Gastrointestinal: soft, non-tender, non-distended, normal bowel sounds Extremities: no cyanosis, no clubbing Neurological: no new deficit Neurological - other findings: Right-sided> 45 /6 Psychiatric: normal affect, A&O x 3 Hosp A/P (1) Acute CVA (cerebrovascular accident) Code(s): I63.9 - CEREBRAL INFARCTION, UNSPECIFIED Status: Acute (2) Hypertension Code(s): I10 - ESSENTIAL (PRIMARY) HYPERTENSION Status: Acute (3) Hyperlipidemia Code(s): E78.5 - HYPERLIPIDEMIA, UNSPECIFIED Status: Chronic (4) CKD (chronic kidney disease) stage 2, GFR 60-89 ml/min Code(s): N18.2 - CHRONIC KIDNEY DISEASE, STAGE 2 (MILD) Status: Chronic (5) Obesity (BMI 30.0-34.9) Code(s): E66.9 - OBESITY, UNSPECIFIED Status: Chronic (6) Tobacco dependence Code(s): F17.200 - NICOTINE DEPENDENCE, UNSPECIFIED, UNCOMPLICATED Status: Chronic (7) Acute sinusitis Code(s): J01.90 - ACUTE SINUSITIS, UNSPECIFIED Status: Chronic - Plan DVT proph w/lovenox 04/20 MRI of the brain is consistent with left MCA distribution embolic CVA. Patient is currently on aspirin and Plavix. Echocardiogram was negative for intracardiac thrombus. CTA of the head and neck was otherwise negative. Will consult cardiology for suspected cardioembolic CVA. Neurology input appreci ated. Continue statins. Continue Lovenox for DVT prophylaxis. Stroke team. Continue Augmentin for sinusitis. Tobacco cessation. 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
--- NOTE | 2020-04-20 19:29 | CON ---
DATE OF CONSULTATION: HISTORY OF PRESENT ILLNESS: Minerva Vincent is a 60-year-old white female, followed by Dr. Burrows at [facility]. He evaluated her here at [facility] in 06/2004 for chest discomfort. She underwent cardiac catheterization and was found to have a kink in the left main, which was felt to have a 40% to 50% stenosis and a 20% to 30% proximal RCA stenosis. She has been catheterized here again in 02/2006 and 10/2009. In 10/2009, there was only mention of an odd takeoff the left main, but no specific stenosis was mentioned. There was a 50% right coronary artery stenosis and mild luminal irregularities to the LAD and circumflex. Ms. Vincent states she also underwent cardiac catheterization approximately 3 years ago at [facility], and again was advised medical therapy was her best option. She continues to occasionally have chest discomfort at rest, relieved with sublingual nitroglycerin. Also in 2015, she apparently was found to have a left bundle-branch block. She then presented to the hospital on 04/18 with right-sided weakness x1 day. She also had some slurring of her speech. By the time she arrived in the emergency room, the only thing that persisted was right arm weakness. She denies any history of palpitations or rapid heartbeat. From the records that she could call up on her phone, there was no mention of any arrhythmias from her records at [facility]. PAST MEDICAL HISTORY: 1. Coronary artery disease. 2. Hypertrophic obstructive cardiomyopathy per [facility] records. 3. Hypertension. 4. Hyperlipidemia. 5. No history of diabetes. 6. Now with CVA versus TIA. MEDICATIONS: 1. Albuterol two puffs q.4 h. p.r.n. 2. Aspirin 81 daily. 3. Plavix 75 daily. 4. Atorvastatin 40 daily. 5. Bupropion 300 daily. 6. Diltiazem 360 daily. 7. Famvir 500 mg daily. 8. Shirley 180 mg daily. 9. Furosemide 40 mg p.r.n. 10. Hydralazine 25 b.i.d. 11. DuoNebs q.i.d. p.r.n. 12. Isosorbide mononitrate 30 daily. 13. Losartan 100 mg daily. 14. Nitroglycerin p.r.n. 15. Pantoprazole 40 daily. 16. KCl 10 mEq daily. 17. Desyrel 50 mg nightly. 18. Promethazine 5 mg q.i.d. p.r.n. ALLERGIES: NONE. SOCIAL HISTORY: She smokes one pack per day. She does not drink. FAMILY HISTORY: Father had stents placed. REVIEW OF SYSTEMS: A 10-point review of systems is otherwise unremarkable. PHYSICAL EXAMINATION: VITAL SIGNS: Blood pressure 143/78 and pulse of 86. HEENT: PERRL. NECK: Supple. CHEST: Clear. CARDIAC: S1 and S2 are normal without any S3 or S4. There is a 2/6 systolic murmur along the left sternal border. Carotid upstrokes normal without bruits. ABDOMEN: Normal bowel sounds without tenderness or organomegaly. Abdomen is obese. EXTREMITIES: No clubbing, cyanosis, or edema. NEUROLOGIC: Her speech seems normal. She does have right hand weakness. LABORATORY DATA: EKG reveals normal sinus rhythm, possible left atrial enlargement, left axis deviation, and left bundle-branch block (left bundle-branch block apparently since 2016 from her [facility] records). Echocardiogram revealed study to be technically difficult, ejection fraction was 65% to 70% with severe left ventricular hypertrophy, evidence for diastolic dysfunction, mild mitral regurgitation. No cardiac thrombus was noted. [place] angio revealed no high-grade stenosis, dissection, or occlusion. Brain CT revealed no acute abnormality. Brain MRI revealed multiple small foci of acute embolic infarction involving the left middle cerebral artery distribution through the left frontal, left parietal, and left temporal lobes, remote lacunar infarct in the right basal ganglia. CBC is unremarkable. Sodium 139, potassium 4.6, chloride 109, carbon dioxide 22, BUN 10, and creatinine 0.78. Troponin-I is normal cholesterol 141, triglycerides 106, HDL 42, and LDL 78. COVID negative. IMPRESSION: 1. Left middle cerebral artery cerebrovascular accident. 2. History of coronary artery disease with some kinking of the left main on previous catheterizations, but most recent catheterization I have access to did not mention any significant left main disease. She has never had a stent placed, and so from a coronary artery standpoint, can probably get by with aspirin alone. 3. Hypertension. 4. Hypercholesterolemia, under poor control with LDL of 78. 5. Smoker. 6. Positive family history. PLAN: There is no obvious cardiac source for an embolic event. She has failed aspirin and Plavix, and from a coronary standpoint, could be just on aspirin alone. Therefore, she should be switched to Aggrenox b.i.d. Also, her atorvastatin needs to be increased to 80 mg to achieve an LDL goal of less than 70. She was also encouraged to stop smoking. Job ID: [id number] MTDD
[2020-04-20] MEDS ORDERED: Atorvastatin Calcium 40 MG TAB PO SCH (21:00)
[2020-04-20] MEDS: traZODone HCl 50 MG TAB PO SCH (21:50)
[2020-04-20] MEDS: Aggrenox 200-25mg CAP PO SCH (21:50)
[2020-04-21] MEDS: Acetaminophen 500 MG TAB PO PRN (03:54)
[2020-04-21] MEDS ORDERED: hydrALAZINE 20 MG/ML VIAL SLOW IVP PRN (07:47)
[2020-04-21] MEDS ORDERED: cloNIDine 0.1 MG TAB PO PRN (07:47)
[2020-04-21] MEDS ORDERED: Acetaminophen/Codeine 30-300mg Tablet PO PRN ×2 (07:48→12:40)
[2020-04-21] MEDS: Amoxicillin/Potassium Clav 875 MG TAB PO SCH (08:31)
[2020-04-21] MEDS: Losartan 25 MG TAB PO SCH (08:31)
[2020-04-21] MEDS: Aggrenox 200-25mg CAP PO SCH (08:31)
[2020-04-21] MEDS: Potassium Chloride 10 MEQ TAB PO SCH (08:32)
[2020-04-21] MEDS: Bupropion 150 MG XL TAB PO SCH (08:33)
[2020-04-21] MEDS ORDERED: Acetaminophen 325 MG TAB PO SCH (09:00)
[2020-04-21] MEDS ORDERED: hydrALAZINE 25 MG TAB PO SCH (09:00)
[2020-04-21] MEDS: Famciclovir 500 MG TAB PO SCH (09:03)
[2020-04-21] MEDS ORDERED: traMADol HCl 50 MG TAB PO PRN (12:28)
[2020-04-21 12:57] VITALS: BP 143/85; TEMP 97.7
--- NOTE | 2020-04-21 13:26 | PDOC.NEUPN ---
- Subjective Encounter Date: 04/21/20 Subjective: Patient complaining of headache most likely due to aggrenox. - Objective Vital Signs & Weight: Vital Signs (12 hours) Temp Pulse Resp BP BP Pulse Ox 04/21/20 12:00 97.7 F 101 H 20 143/85 H 96 04/21/20 09:04 81 189/91 H 04/21/20 07:30 97.5 F L 81 18 189/91 H 99 04/21/20 07:16 94 180/74 H 04/21/20 03:54 93 194/86 H 04/21/20 03:47 97.8 F 91 16 197/86 H 97 Weight Weight 188 lb I&O: 04/20/20 04/21/20 04/22/20 06:59 06:59 06:59 Intake Total 1000 Balance 1000 Result Diagrams: 04/18/20 12:25 04/18/20 12:24 Radiology Reviewed by me: Yes EKG Reviewed by me: Yes ROS - Review of Systems Constitutional: denies: fever, chills, sweats, weakness, malaise, other Eyes: denies: pain, vision change, conjunctivae inflammation, eyelid inflammation, redness, other ENT: reports: other (headache). denies: ear pain, ear discharge, nose pain, nose discharge, nose congestion, mouth pain, mouth swelling, throat pain, throat swelling Respiratory: denies: cough, dry, shortness of breath, hemoptysis, SOB with excertion, pleuritic pain, sputum, wheezing, other Cardiovascular: reports: no pertinent history Gastrointestinal: denies: nausea, vomiting, abdominal pain, diarrhea, constipation, melena, hematochezia, other Musculoskeletal: denies: neck pain, shoulder pain, arm pain, back pain, hand pain, leg pain, foot pain, other Skin: denies: rash, lesions, bailey, bruising, other Neurological: denies: weakness, numbness, incoordination, change in speech, confusion, seizures, other - Medication Medications: Active Medications Generic Name Dose Route Start Last Admin Trade Name Freq PRN Reason Stop Dose Admin Acetaminophen 500 mg 04/18/20 22:52 04/21/20 03:54 Acetaminophen 500 Mg Tab PO 500 mg Q6H PRN Administration Pain Amoxicillin/Clavulanate Potassium 875 mg 04/18/20 21:00 04/21/20 08:31 Amoxicillin/Potassium Clav 875 Mg Tab PO 875 mg Q12HR JAYANT Administration Atorvastatin Calcium 80 mg 04/20/20 21:00 04/20/20 21:50 Atorvastatin Calcium 40 Mg Tab PO 80 mg HS JAYANT Administration Bupropion HCl 300 mg 04/19/20 09:00 04/21/20 08:33 Bupropion 150 Mg Xl Tab PO 300 mg DAILY JAYANT Administration Diltiazem HCl 360 mg 04/19/20 09:00 04/21/20 08:32 Diltiazem Hcl Cd 180 Mg Capsule PO 360 mg DAILY JAYANT Administration Dipyridamole/Aspirin 1 cap 04/20/20 21:00 04/21/20 08:31 Aggrenox 200-25mg Cap PO 1 cap BID JAYANT Administration Ergocalciferol 1.25 mg 04/19/20 09:00 04/19/20 09:23 Ergocalciferol 1.25 Mg(50,000 Units) Cap PO 1.25 mg Q7DAYS JAYANT Administration Famciclovir 500 mg 04/19/20 09:00 04/21/20 09:03 Famciclovir 500 Mg Tab PO 500 mg DAILY JAYANT Administration Hydralazine HCl 25 mg 04/21/20 09:00 04/21/20 09:04 Hydralazine 25 Mg Tab PO 25 mg TID JAYANT Administration Isosorbide Mononitrate 30 mg 04/19/20 09:00 04/21/20 08:33 Isosorbide Mononitrate Er 30 Mg Tab PO 30 mg DAILY JAYANT Administration Losartan Potassium 100 mg 04/19/20 09:00 04/21/20 08:31 Losartan 25 Mg Tab PO 100 mg DAILY JAYANT Administration Pantoprazole Sodium 40 mg 04/19/20 09:00 04/21/20 08:31 Pantoprazole 40 Mg Tab PO 40 mg DAILY JAYANT Administration Potassium Chloride 10 meq 04/19/20 09:00 04/21/20 08:32 Potassium Chloride 10 Meq Tab PO 10 meq DAILY JAYANT Administration Sodium Chloride 10 ml 04/18/20 17:08 04/20/20 09:00 Flush - Normal Saline 10 Ml Syringe IVF 10 ml PRN PRN Administration Saline Flush Tramadol HCl 50 mg 04/21/20 12:28 04/21/20 12:48 Tramadol Hcl 50 Mg Tab PO 50 mg Q4H PRN Administration Moderate Pain (4-6) Trazodone HCl 50 mg 04/18/20 21:00 04/20/20 21:50 Trazodone Hcl 50 Mg Tab PO 50 mg HS JAYANT Administration - Exam General Appearance: awake alert Eye: PERRL ENT: normocephalic atraumatic Neck: supple Respiratory: CTAB Cardiovascular: RRR Gastrointestinal: soft Extremities: no cyanosis Skin: normal turgor Neurological: no new deficit Musculoskeletal: normal tone, no muscle wasting PSYCH: normal affect, normal behavior, A&O x 3 Results - Labs Result Diagrams: 04/18/20 12:25 04/18/20 12:24 Lab results: WBC 9.4 thou/uL (4.8-10.8) 04/18/20 12:25 Hgb 14.2 g/dL (12.0-16.0) 04/18/20 12:25 Hct 41.7 % (36.0-47.0) 04/18/20 12:25 MCV 94.3 fL (78.0-98.0) 04/18/20 12:25 Plt Count 271 thou/uL (130-400) 04/18/20 12:25 Neutrophils % 58.9 % (42.0-75.0) 04/18/20 12:25 Sodium 139 mmol/L (136-145) 04/18/20 12:24 Potassium 4.6 mmol/L (3.5-5.1) 04/18/20 12:24 Chloride 109 mmol/L (98-107) H 04/18/20 12:24 Carbon Dioxide 22 mmol/L (22-29) 04/18/20 12:24 BUN 10 mg/dL (9.8-20.1) 04/18/20 12:24 Creatinine 0.78 mg/dL (0.6-1.1) 04/18/20 12:24 Glucose 98 mg/dL (70-105) 04/18/20 12:24 Calcium 8.6 mg/dL (7.8-10.44) 04/18/20 12:24 Total Bilirubin 0.4 mg/dL (0.2-1.2) 04/18/20 12:24 AST 23 U/L (5-34) 04/18/20 12:24 ALT 30 U/L (8-55) 04/18/20 12:24 Alkaline Phosphatase 81 U/L (40-110) 04/18/20 12:24 Troponin I 0.015 ng/mL (< 0.028) 04/18/20 12:24 Serum Total Protein 6.4 g/dL (6.0-8.3) 04/18/20 12:24 Albumin 3.9 g/dL (3.5-5.0) 04/18/20 12:24 Urine Ketones Negative mg/dL (Negative) 04/18/20 13:04 Urine Blood Negative (Negative) 04/18/20 13:04 Urine Nitrite Negative (Negative) 04/18/20 13:04 Ur Leukocyte Esterase Negative Scott/uL (Negative) 04/18/20 13:04 PN A/P (1) Acute CVA (cerebrovascular accident) Code(s): I63.9 - CEREBRAL INFARCTION, UNSPECIFIED Status: Acute (2) Hypertension Code(s): I10 - ESSENTIAL (PRIMARY) HYPERTENSION Status: Acute - Plan Daily Plan: PT/OT, speech therapy, DVT proph w/SCDs 60-year-old female presented with right upper extremity weakness. MRI of the brain consistent with acute infarction. She was started on aggrenox per cardiology . Headache as a side -effect. Patient was made aware that side effects resolve within a week. Needs aggrenox because of asa and plavix failure. MRI of the brain reviewed and was consistent with acute multiple foci of infarction in the left MCA territory. CTA of the head and neck reviewed and was negative for hemodynamically significant stenosis. 2D echo completed. Results reviewed which showed ejection fraction of 60 to 65%. No evidence of thrombus or PFO. Neuro checks every 4 hours. Telemetry to rule out arrhythmias. Patient had stroke on combination of aspirin and Plavix. Consider switching to Aggrenox 1 tablet twice daily. Continue high intensity statin for secondary stroke prevention. Continue home medications. Strict control of blood pressure and strict control of blood glucose. PT/OT/speech. Continue medical management per primary team. Plan discussed in detail with the patient, and during stroke rounds.
[2020-04-21] MEDS ORDERED: Promethazine 25 MG TAB PO PRN (15:39)
[2020-04-21] MEDS ORDERED: Promethazine HCl 25 MG in Sodium Chloride 0.9% 50 ML IVPB PRN (15:39)
[2020-04-21] MEDS ORDERED: Ondansetron PF 4 MG/2 ML Vial IVP PRN (15:39)
[2020-04-21] MEDS ORDERED: Ondansetron ODT 4 MG TAB PO PRN (15:39)
--- NOTE | 2020-04-21 20:24 | DIS ---
DATE OF ADMISSION: 04/18/2020 DATE OF DISCHARGE: 04/21/2020 DISCHARGE DISPOSITION: Home. FOLLOWUP: With [facility], [place], operated by [facility] in 1 week. PRIMARY IT CONSULTING MANAGER: Dr. Burrows, Cardiology at [facility]. DISCHARGE MEDICATIONS: Aspirin and Plavix were discontinued. The patient was started on Aggrenox. Hydralazine 25 mg 3 times daily was added due to uncontrolled blood pressure. Lipitor was increased to 80 mg at bedtime. All other home medications were left unchanged. The patient was seen and examined on the day of discharge. Denies any new complaints. No new focal deficit. Right-sided weakness improving. BRIEF HOSPITAL COURSE: The patient is a 60-year-old female with hypertension and hyperlipidemia, presented to the emergency room on 18 April 2020 with right-sided weakness. Please note that the patient was on aspirin and Plavix on admission. Initial CT scan of the brain was negative for acute findings. CT angiogram of the head and neck was negative for hemodynamically significant stenosis. She had maxillary and ethmoid mucosal paranasal sinus disease with findings suggestive of Sjogren disease. There was mild arthrosclerosis of bilateral proximal internal carotid artery, right greater than left. An echocardiogram showed ejection fraction of 65% to 70% percent with severe left ventricular hypertrophy, diastolic dysfunction, and mild mitral regurgitation. She underwent an MRI of the brain that showed multiple small foci of acute embolic infarction involving the left MCA distribution of the left frontal, left parietal, and left temporal lobes. It also showed remote lacunar infarct of the right basal ganglia and mild chronic small-vessel white matter ischemic changes. There was also acute bilateral maxillary ethmoid sinusitis. The patient was evaluated by Neurology as well as Cardiology due to suspected embolic CVA. Aspirin and Plavix have been discontinued. Instead, the patient was started on Aggrenox. I have notified the patient's primary radiology interventional physician's office to set up an event monitor. The patient had mild headache after Aggrenox. She was advised to contact Neurology if her headache does not improve in the next few days. She was also started on Augmentin for sinusitis. CT angiogram of the head and neck was consistent with possible Sjogren disease. Primary care physician advised to follow. FINAL DIAGNOSES: 1. Acute cerebrovascular accident as discussed above. 2. Hypertension. 3. Obesity with a BMI of 32.3. 4. Hyperlipidemia. Fasting lipid profile showed LDL of 78, cholesterol of 141, triglyceride 106 with HDL of 42. 5. Chronic kidney disease, stage 2. 6. Tobacco dependence. 7. Acute sinusitis. 8. Mild generalized headache, probably due to Aggrenox. The patient was advised to contact Neurology if her headache does not improve in the next few days. Time coordinating the discharge of this patient was [address] Burrows's office to set up an event monitor. Job ID: [id number]
--- NOTE | 2020-04-22 15:33 | CT ---
"PRELIMINARY REPORT" CT ANGIOGRAM NECK WITH CONTRAST: DATE: 04/18/2020 HISTORY: 60-year-old female with TIA: Right-sided neurological deficits: Upper and lower extremity, and facial paralysis TECHNIQUE: After IV contrast injection, arterial bolus chasing technique scan performed from AP window and iam a to vertex of skull Coronal and sagittal 3-D MIP reconstructions. FINDINGS: There are large air-fluid levels in the bilateral maxillary sinuses. Severe mucosal thickening throug hout bilateral ethmoid air cells. Diffuse micronodular pattern of bilateral parotid glands suggestive of Sjogren's disease. Some of the arteries at the thoracic inlet are obscured by streak artifact from dense IV contrast cherise us material in adjacent veins. Brachiocephalic: Origin obscured. No high-grade stenosis in rest of vessel. Right subclavian: No high-grade stenosis. Left subclavian: Proximal portion obscured. Atheromatous plaque causing severe stenosis at origin. Mi d and distal portions within normal limits in caliber. Right vertebral: No high-grade stenosis or dissection. Left vertebral: No high-grade stenosis or dissection. Right common carotid: No high-grade stenosis or dissection. Left common carotid: Origin obscured. Otherwise no high-grade stenosis or dissection. Right internal carotid: Multifocal calcified atheromatous plaque at carotid bulb, including origin of right internal carotid, where there is mild stenosis. No high-grade stenosis or dissection in rest of vessel. Left internal carotid: Mild calcified plaque at origin. No significant stenosis. No dissection. Carotid siphons: Mild plaque. No high-grade stenosis. Bilateral MCAs: No high-grade stenosis, thrombosis, or occlusion of M1 segments. Basilar: No high-grade stenosis or occlusion. Bilateral professor of genetics: P1 and P2 segments patent Bilateral superior cerebellars: Proximal portions patent IMPRESSION: 1) mild atherosclerosis of bilateral proximal internal carotid arteries, right greater than left. 2) no high-grade stenosis, dissection, or occlusion identified in any major artery. 3) findings suggestive of Sjogren's disease. Recommend clinical correlation. 4) maxillary and ethmoid mucosal paranasal sinus disease. Transcribed Date/Time: 04/22/2020 3:33 PM
== END 2020-04-21 16:30 | disposition home or self-care (01) | DRG 65 ==
LOC: ERS 12:12 → 2SE 17:00
PROVIDERS: ADMIT Internal Medicine; ATTEND Internal Medicine
DX: I63.412 Cerebral infarction due to embolism of left middle cerebral artery (principal); G81.91 Hemiplegia, unspecified affecting right dominant side; N18.2 Chronic kidney disease, stage 2 (mild); E66.9 Obesity, unspecified; Z68.32 Body mass index [BMI] 32.0-32.9, adult; E78.5 Hyperlipidemia, unspecified; I12.9 Hypertensive chronic kidney disease with stage 1 through stage 4 chronic kidney disease, or unspecified chronic kidney disease; F32.9 Major depressive disorder, single episode, unspecified; J01.90 Acute sinusitis, unspecified; F17.200 Nicotine dependence, unspecified, uncomplicated; T39.015A Adverse effect of aspirin, initial encounter; Z79.899 Other long term (current) drug therapy; R29.702 NIHSS score 2; Z20.828 Contact with and (suspected) exposure to other viral communicable diseases; J01.20 Acute ethmoidal sinusitis, unspecified
CPT/HCPCS: 36415; 70450; 70496; 70498; 70551; 71045; 80053; 80061; 81003; 84484; 85025; 85610; 85730; 87040; 87635; 93005; 93306; 94760; J0282; J1650; J7070; Q0162; Q9967; U0003